=== PATIENT | male | born 1955 | race American Indian/Alaskan Native ===

== ENCOUNTER 2016-08-02 10:31 | Day surgery (SDC) | payer MEDICARE, OTHER ==
[2016-07-29 15:10] VITALS: BMI 25.1
[2016-08-02] MEDS ORDERED: Bupivacaine 0.25%-Epinephrine 1:200,000 (30 ml) Inj ONE (10:53)
[2016-08-02] MEDS ORDERED: Propofol 10 mg/ml Inj (20 ML) ONE (10:53)
[2016-08-02] MEDS ORDERED: Lidocaine 2% w Epi 1:100,000 Inj IJ ONE (10:54)
[2016-08-02] MEDS ORDERED: Ropivacaine 0.5% 30ML IV ONE (11:01)
[2016-08-02] MEDS ORDERED: Rocuronium 10 mg/ml (5 ml) ONE (11:06)
[2016-08-02] MEDS ORDERED: Lactated Ringer's 1,000 ML IV ONE ×2 (11:21→15:15)
[2016-08-02] MEDS ORDERED: Midazolam 2 MG/2 ML VIAL ONE (12:03)
[2016-08-02] MEDS ORDERED: Esmolol 100 mg/10ml Inj IV ONE (12:40)
[2016-08-02] MEDS ORDERED: Neostigmine Methylsulfate 3mg/3ml Syringe IV ONE (13:22)
[2016-08-02] MEDS ORDERED: Neostigmine Methylsulfate 2 MG/2 ML ML IV ONE (13:22)
[2016-08-02] MEDS ORDERED: Dexamethasone 4 mg/1 ml ONE (13:46)
--- NOTE | 2016-08-02 14:49 | PCM.SURG1 ---
Surgeon's Initial Post Op Note - Surgeon's Notes Surgeon: Ruthie De Guzman MD Revenue Inspector: Levar Carroll PA-C Type of Anesthesia: General Endo Pre-Operative Diagnosis: Left shoulder rotator cuff tear type I Operative Findings: See op report Post-Operative Diagnosis: Same as pre-op dx Operation Performed: Left shoulder arthroscopy, rotator cuff repair, subacromial decompression. Open biceps tenodesis Specimen/Specimens Removed: left shoulder biceps tendon Estimated Blood Loss: EBL {In ML}: 25 Date of Surgery/Procedure: 08/02/16 (none) Time of Surgery/Procedure: 02:30
[2016-08-02] MEDS ORDERED: Oxycodone/Acetaminophen 5/325 mg Tab PO PRN (14:53)
[2016-08-02] MEDS: HYDROmorphone 0.5 mg/0.5 ml ISec IVP PRN ×2 (15:34→15:42)
[2016-08-02 15:35] VITALS: RESP 18
--- NOTE | 2016-08-02 16:45 | OP ---
PROCEDURE DATE: 08/02/2016 DATE OF OPERATION: 08/02/2016 ATTENDING PHYSICIAN: Ruthie De Guzman MD ASSISTANTS: Paulie Carroll PA-C PREOPERATIVE DIAGNOSES: 1. Left shoulder rotator cuff tear. 2. Synovitis. 3. Biceps tenosynovitis. POSTOPERATIVE DIAGNOSES: 1. Left shoulder long head of biceps tendon tear. 2. Extensive synovitis. 3. Multiple capsular adhesions 4. Full-thickness supraspinatus tear. 5. Subacromial bursitis. 6. Impingement. 7. There is glenoid grade III cartilage defect. PROCEDURES: 1. Left shoulder arthroscopic rotator cuff repair. 2. Decompression with acromioplasty. 3. Lysis of adhesions without manipulation. 4. Synovectomy. 5. Mini-open biceps tenodesis. 6. Chondroplasty. ANESTHESIA TYPE: General and interscalene block. ESTIMATED BLOOD LOSS: 15 mL. CLOSURE: Primary FLUIDS: See anesthesia sheet ANTIBIOTICS: See anesthesia sheet COMPLICATIONS: None. Indications: After failing a course of non-operative therapy, the patient elected to undergo the above procedures. In the office the risks and possible complications of the shoulder arthroscopy were discussed in detail with the patient. These risks include, but are not limited to: continued pain, lack of motion, infection, vascular injury, and nerve injury including axillary nerve dysfunction, reflex sympathetic dystrophy, compartment syndrome, limb loss, and . The patient expressed an understanding of the risks and possible benefits of the procedure, and was also made aware of the alternatives to surgery. An informed consent was obtained, and was checked immediately pre-op. The patient was correctly identified in the holding area and the left shoulder was marked with the surgeon's initials. The patient was transported to the operating room and placed in the supine position and general anesthesia and intraregional scalene block anesthesia was obtained. A preoperative orthopedic examination revealed a passive range of motion to 160 degrees of forward elevation, 50 degrees of external rotation, and 110 degrees of abduction. Stability examination revealed: No instability was noted. The patient was then placed in a beach chair position utilizing the beach chair positioning device. The patient's head was stabilized and the indicated upper extremity was prepped and draped in the standard surgical fashion. The anatomic structures were outlined with a skin marker, and 1% lidocaine with epinephrine was injected into the posterior, anterior, and lateral portal areas. A #21-gauge spinal needle was placed in the glenohumeral joint from the posterior portal and 10 mL of sterile saline was injected into the glenohumeral joint. Return of fluid indicated correct needle placement into the joint. The needle was then withdrawn and a #11 blade was used to make a 1cm incision at the posterior portal site. Next, the arthroscopic blunt trocar was inserted into the glenohumeral joint. A #21-gauge spinal needle was placed through the anterior rotator interval, and the anterior portal was made with a #11 blade after the spinal needle was withdrawn. A 7-mm cannula was then inserted after the skin incision was made and the arthroscopic probe was then used to examine the internal structures of the glenohumeral joint. With the shoulder abducted and externally rotated position, the articular surface of the rotator cuff was visualized. The arthroscope and probe were then switched from posterior to anterior. The posterior labrum, posterior capsule, and biceps anchor reflection was then inspected with the arthroscope in the anterior portal position. Examination of the glenohumeral joint revealed: 1. Extensive synovitis. 2. Long head biceps tendon tear. 3. Full-thickness supraspinatus tear. The radiofrequency device was introduced through the anterior portal and a radiofrequency anterior capsular rotator interval lysis of adhesions was performed. The anterior capsule was released to optimize range of motion. The radiofrequency device was used to provide hemostasis during this procedure. After the lysis of adhesions, passive range of motion improved to 180 degrees of forward elevation, 70 degrees of external rotation, and 150 degrees of abduction. The full radius shaver was used to mechanically debride loose chondral edges of the glenoid, to a stable border. Extreme care was taken to not disrupt the adjacent chondral surface. The edge of the debrided area was probed to ensure chondral stability. The biceps pathology was addressed with Biceps tenodesis. Upon careful arthroscopic evaluation of biceps tendon and its anchor site at the labrum, it was noted to be highly frayed and tears not amenable to repair Biceps tenotomy was performed using the arthroscopic scissors. Afterwards, a small 2cm incision was marked within the axillary fold and injected with 2 mL of 1% Lidocaine with Epinephrine. Skin incision was made using a 15 blade. Deeper dissection was carried out with scissor, and interval between pectoralis major tendon and coracobrachialis. Biceps tendon was identified sitting within the biceps groove. It was removed from the groove and found to be erythematous with inter- substance fraying and tearing. Torn edges of the tendon were incised using 15 blade and a 2.0 fiber loop was used to whip stitch the tendon. The elbow was taken through flexion and extension to identify the appropriated site of tenodesis within the bicipital groove with proper tensioning of muscle belly. For tenodesis, we used the Arthrex bicortical button. The free ends of fiber loop were loaded onto the metal cortical button. The diameter of the tendon was measured using the guide. Using appropriate drill bit for, bicortical drill hole was made at the top of bicipital groove. Then, using the appropriate size reamer, as determined after measuring the width of biceps tendon, the near cortex was drilled approximately 1.5cm in depth. The cortical button was loaded on the handle and passed through the drilled hole then flipped at the far cortex. The Biceps tendon was delivered into the drill hole and was sutured and secured with fiber loop. Normal saline irrigation was used to remove all the debris and loose bodies. Skin edges were brought closer using 2.0 Vicryl sutures and closed 4.0 Nylon sutures. Excessive glenohumeral synovitis was cleared with a 4.0 mm full radius shaver. The hypertrophic, erythematous synovium was resected, hemostasis was maintained with the radiofrequency device. At this point, the arthroscope was withdrawn from the glenohumeral joint and subacromial space was then entered using a blunt trocar. Gentle resistance sweeping against the coracoacromial ligament confirmed proper placement of the sheath and the arthroscope was inserted. A 1-cm incision was made at the inferolateral acromial area to create the lateral portal. Examination of the subacromial space revealed: 1. Full-thickness supraspinatus tear. 2. Extensive bursitis. 3. Impingement. Visualization of the subacromial space was difficult due to excessive bursitis. A bursectomy was performed using a combination of radiofrequency device as well as a 4.0-mm full radius motorized shaver. The soft tissue on the undersurface of the acromion was debrided utilizing the 4.0 mm full radius shaver and the radiofrequency device was used for hemostasis. At this point, the coracoacromial ligament was released, with the radiofrequency device, and the acromial branch of the thoracoacromial artery was coagulated with the same instrument. Sub-acromial decompression was performed with a 4.0 mm conical danna using both the medial portal and the "cutting-block" precision acromioplasty technique from the posterior portal. The undersurface of the acromion was resected to a flat, smooth surface to allow unrestricted excursion of the rotator cuff. After adequate subacromial decompression, attention was then turned to the full thickness rotator cuff tear, which was easily visualized after adequate bursectomy had been performed. An auxiliary preeti-lateral portal was placed 2 cm anterior to the original lateral portal, after a correct "-man' angle" was determined using a trans-deltoid 21 gauge spinal needle. Arthroscopic soft tissue releases were performed using an elevator at the coracohumeral ligament insertion and superior glenoid to free up the rotator cuff to provide adequate excursion to support a repair to the greater tuberosity. Next, the greater tuberosity was gently debrided with a combination of the 4.0 mm straight shaver and radiofrequency device, and the bone was denuded to a bleeding surface using the 4.0 mm danna. The lateral margin of the rotator cuff tear was debrided to a smooth and stable tendon surface using hand instruments and the 4.0 mm shaver. A Fibertape mattress suture was passed with a suture passing device and the suture limbs were brought out through the anterior portal. The suture limbs were then transferred to the anterior lateral auxiliary portal and a single 4.5 mm Arthrex bio-swivelock suture anchor was placed after punching and tapping with the proper "-man's angle" into the greater tuberosity. The arm was abducted to 70 degrees, and the leading edge of the cuff was drawn to its proper insertion on the greater tuberosity as the suture anchor was impacted into the bone. The ends of the remaining suture limbs were then cut. The shoulder was put through a passive ROM, and the rotator cuff repair was noted to be stable through a ROM of 130/50. No prominence of the suture anchor or of rotator cuff tissue was noted to impinge during abduction and internal rotation. The subacromial space was then irrigated with sterile saline, and closure was instituted with sutures. A dressing was placed consisting of Xeroform, 4 x 4's , ABD pads, and tape. The patient was placed in a sling with an ABD pad in the axilla. The patient was then placed in a supine position and extubated without incident. The patient was transferred to the recovery room in stable condition , having tolerated the procedure well. Post-operatively, the patient will be maintained in an abduction sling. Also, provided with my rehab protocol, defining the restriction and sling use for 6 weeks. Follow up in 10 days. During this procedure, I was assisted by Paulie Carroll PA-C, who assisted in positioning the patient on the operating room table as well as transferring the patient from the operating room table to the recovery room stretcher. In addition, Paulie Carroll PA-C assisted me during the actual operative procedure by positioning the patient's extremity to allow for easier arthroscopic access to all areas of the joint. The presence of Paulie Carroll PA-C as my operative media center assistant was medically necessary to ensure the utmost safety of the patient in the pre, intra-, and post-operative periods. Ruthie De Guzman MD cc: [id number] TT: 08/02/2016 16:44:31 winter DUPREE
[2016-08-02 16:46] VITALS: TEMP 97
[2016-08-02 18:30] VITALS: BP 103/73; PULSE 68; O2SAT 96
--- NOTE | 2016-08-03 11:12 | PCM.ANESB1 ---
Interscalene Block - Brachial Plexus Date of Procedure: 08/02/16 Anesthesiologist: rohini Pre-Procedure Diagnosis: L shoulder DJD Post-Procedure Diagnosis: same Procedure Performed: Interscalene Block of Brachial Plexus Left - Procedure Interscalene Block of Brachial Plexus: This procedure was explained to the patient that it is for post-operative pain management. Consent was obtained after a thorough discussion with the patient regarding the benefits and possible complications of local anesthetic block of the Brachial Plexus at the Interscalene area. The patient was brought to the Operating Room and standard monitors were applied. Time out was held with the circulating nurse to confirm the correct surgery and appropriate block. After applying Oxygen by nasal cannula and administering IV Sedation, the patient's head was gently rotated away from the _left operative shoulder and the anterior scalene groove was carefully palpated. The ultrasound transducer was then applied to the skin in the transverse plane and the brachial plexus was visualized lateral to the carotid artery and in between the anterior and middle scalene muscles. After identification,the anterior lateral portion of the neck was prepped with Betadine solution three times and Lidocaine 1% was injected subcutaneously for topical analgesia. At this point, a # 22 gauge Stimuplex 2 inches insulated needle was inserted into the interscalene groove and directed in a caudal and midline direction. The needle was inserted lateral to the ultrasound transducer in-plane towards the brachial plexus in a [id number] direction. Needle advancement was performed carefully under direct ultrasound visualization. Nerve stimulator was used and twitched of the affected extremity including the hand brachialis muscles, biceps and the deltoid was obtained at a current of __2.0___MA. After repeated negative aspiration,__1___cc of__0.5___,___ropivicaine were injected and this was followed with _19____cc of _0.5____% _ropivicaine____ . Under ultrasound guidance the local anesthetics were observed surrounding the roots of the brachial plexus. The needle was removed intact and sterile dressing was applied. The patient had stable vital signs, was conscious and in no apparent distress. No paresthesia was experience by the patient during the procedure or needle placement. The patient tolerated the interscalene block of the bracheal plexus well with stable vital signs and was prepared for subsequent surgery.
== END 2016-08-02 18:30 | disposition home or self-care (01) ==
LOC: H.OPSURG 10:31
PROVIDERS: ATTEND Orthopaedic Surgery
DX: S46.812A Strain of other muscles, fascia and tendons at shoulder and upper arm level, left arm, initial encounter (principal); X58.XXXA Exposure to other specified factors, initial encounter; M65.812 Other synovitis and tenosynovitis, left shoulder; M75.52 Bursitis of left shoulder; M75.42 Impingement syndrome of left shoulder
CPT/HCPCS: 29820; 29826; 29827; 88305; C1713; C1776; J0171; J0690; J1100; J1170; J2001; J2250; J2704; J2710; J3010; J7030; J7120